=== PATIENT | male | born 1965 | race Caucasian/White ===

== ENCOUNTER 2020-10-06 18:21 | Inpatient (IN) | payer BC ==
[~2020-10-06] VITALS: Ht 182.9 cm; Wt 67.1 kg
[~2020-10-06 18:21] MED LIST: ASPI-611 PO; CARB200T2 PO; CARB200T68 PO; DIVA500T9 PO; GABA-338 PO; LISI20TA28 PO; PHEN100C4 PO; etomidate 2mg/ml inj. ONE; rocuronium 10mg/ml inj IV ONE
[2020-10-06] MEDS ORDERED: LORazepam 2 mg/ml vial IV ONE ×3 (18:30→21:50)
[2020-10-06] MEDS ORDERED: normal saline 1000ML IV soln IVB ONE (18:30)
[2020-10-06] MEDS ORDERED: levetiracetam inj 500 MG in normal saline 100ml IV soln 95 ML IV ONE (18:45)
--- NOTE | 2020-10-06 18:57 | NUR ---
ATTEMPT EKG, UNABLE AT THIS TIME, PATIENT TO CT.
[2020-10-06 19:03] LABS: BASOPHILS % (AUTO) 0.3 % (0-1); EOSINOPHILS % (AUTO) 0.2 % (0-6); HEMATOCRIT 46.9 % (42.0-52.0); HEMOGLOBIN 14.8 g/dl (14.0-17.9); LYMPHOCYTES % (AUTO) 18.7 % (21-51); MEAN CORPUSCULAR HEMOGLOBIN 33.3 PG (27.0-31.0); MEAN CORPUSCULAR HGB CONC 31.5 g/dL (33.0-36.5); MEAN CORPUSCULAR VOLUME 105.6 FL (78-98); MONOCYTES # (AUTO) 0.4 X10'3 (0-0.9); MONOCYTES % (AUTO) 3.4 % (2-12); NEUTROPHILS # (AUTO) 8.3 X10'3 (1.8-7.7); NEUTROPHILS % (AUTO) 77.4 % (42-75); PLATELET COUNT 185 X10'3 (140-440); RED BLOOD COUNT 4.44 X10'6 (4.70-6.10); RED CELL DISTRIBUTION WIDTH 13.1 % (11.5-14.5); WHITE BLOOD COUNT 10.7 X10'3 (4.5-11.0)
[2020-10-06] MEDS ORDERED: MIDAZolam 5mg/ml 2ml vial IV ONE (19:05)
[2020-10-06 19:32] LABS: ALANINE AMINOTRANSFERASE 32 U/L (12-78); ALBUMIN 4.1 G/DL (3.4-5.0); ALKALINE PHOSPHATASE 195 IU/L (46-116); ANION GAP 30 (8-16); ASPARTATE AMINO TRANSFERASE 32 U/L (10-37); BILIRUBIN,TOTAL 0.3 MG/DL (0.1-1.0); BLOOD UREA NITROGEN 9 MG/DL (7-18); BUN/CREATININE RATIO 6.9 (5.4-32.0); CALCIUM 8.8 MG/DL (8.5-10.1); CHLORIDE 102 MMOL/L (99-107); CREATININE 1.31 MG/DL (0.60-1.10); ETHANOL < 0.010 GM/DL (0.0-0.010); GLUCOSE 235 MG/DL (70-104); POTASSIUM 3.7 MMOL/L (3.5-5.1); SODIUM 141 MMOL/L (135-145); TOTAL PROTEIN 8.1 G/DL (6.4-8.2); VALPROATE < 3.0 UG/ML (50-100); eGFR 57 ML/MIN
[2020-10-06 19:33] LABS: CARBAMAZEPINE (TEGRETOL) < 0.5 UG/ML (4.0-12.0)
[2020-10-06 19:37] LABS: TOTAL CARBON DIOXIDE 9.3 MMOL/L (24-32)
[2020-10-06 19:38] LABS: TROPONIN I 1.69 NG/ML (0.0-0.05)
[2020-10-06] MEDS ORDERED: enoxaparin 100mg/ml syringe SUBCUT ONE (19:45)
[2020-10-06] MEDS: propofol 1000mg/100ml bottle 100 ML IV PRN (19:46)
[2020-10-06 19:49] LABS: ABG BASE EXCESS -11.1 mmol/L (-2.0-2.0); ABG HCO3 14.9 mmol/L (22.0-26.0); ABG OXYGEN SATURATION 98.9 % (94-97); ABG PCO2 (T) 33.3 mmHg (35.0-48.0); ABG PO2 (T) 161.5 mmHg (75.0-100.0); ALLEN'S TEST POSITIVE; FCOHb 0.3 % (0.0-3.9); FMetHb 0.4 % (0.0-1.5); FO2Hb 98.2 % (94-97); PATIENT TEMPERATURE 36.4; PEEP 5 cm H2O; RESPIRATORY RATE 16 b/min; TIDAL VOLUME 450 mL; TOTAL HEMOGLOBIN 14.9 G/dl (14.0-18.0)
[2020-10-06] MEDS ORDERED: enoxaparin 80mg/0.8ml syringe SUBCUT ONE (19:50)
--- NOTE | 2020-10-06 19:55 | NUR ---
@1930 20mg etomadate 80mg rocuronium 22cm to teeth
--- NOTE | 2020-10-06 19:56 | NUR ---
Suzie quesada in EDM - 10/06/20 at 2000 by SANDHYA prior to CT patient was extremely agitated with alternating sonorous behavior. Patient required 2 doses of ativan 2mg and 5 mg tony penaloza's presention and [facility], DR. Marin, decided to itaronbate, At `1930 patient intubated.
--- NOTE | 2020-10-06 20:00 | NUR ---
prior to CT patient was extremely agitated with alternating sonorous behavior. Patient required 2 doses of ativan 2mg and 5 mg versed. Due to patient's presention and PMH, DR. Marin, decided to intubate, At 1930 patient intubated.
[2020-10-06 20:36] LABS: CLARITY,URINE CLEAR (Clear); COLOR,URINE STRAW (Yellow); GLUCOSE, URINE 100 mg/dl (Neg); KETONES,URINE NEGATIVE (Neg); LEUKOCYTE ESTERASE ,URINE NEGATIVE (Neg); NITRITES, URINE NEGATIVE (Neg); OCCULT BLOOD,URINE MODERATE (Neg); PH,URINE 5.5 (4.8-8.0); PROTEIN,URINE TRACE mg/dl (Neg); UROBILINOGEN,URINE 0.2 E.U/dL (0.2-1.0)
[2020-10-06 20:40] LABS: UA COLLECTION TYPE CLN CATCH MIDSTREAM
[2020-10-06 20:41] LABS: BACTERIA,URINE NONE SEEN /HPF (Neg); RBC,URINE 0-2 /HPF (0-2); SQUAMOUS EPITHELIAL CELL,UR FEW /LPF (FEW); WBC,URINE NONE SEEN /HPF (0-4)
[2020-10-06 20:58] LABS: URINE AMPHETAMINE SCREEN NEGATIVE (Neg); URINE BARBITUATE SCREEN NEGATIVE (Neg); URINE BENZODIAZEPINES SCREEN POSITIVE (Neg); URINE CANNABINOID SCREEN POSITIVE (Neg); URINE COCAINE SCREEN NEGATIVE (Neg); URINE METHADONE SCREEN NEGATIVE (Neg); URINE OPIATE SCREEN NEGATIVE (Neg); URINE PHENCYCLIDINE SCREEN NEGATIVE (Neg)
[2020-10-06] MEDS ORDERED: acetaminophen 325mg tablet PO PRN ×2 (21:20)
[2020-10-06] MEDS ORDERED: ipratropium/albuterol 3ml nebule NEB PRN (21:20)
[2020-10-06] MEDS ORDERED: magnesium hydroxide 30ml (MOM) UD suspension PO PRN (21:20)
[2020-10-06] MEDS ORDERED: morphine 2 MG/ML inj. syringe IV PRN (21:20)
[2020-10-06] MEDS ORDERED: morphine 4 MG/ML inj SYRINge IV PRN (21:20)
[2020-10-06] MEDS: K, MAG and/or Phos replacement - Verify level? MC SCH (22:00)
[2020-10-06] MEDS ORDERED: FOSphenytoin 500mg inj. 1,000 MG in normal saline 100ml IV soln 80 ML IV ONE (22:40)
[2020-10-06 23:00] VITALS: BP 131/87
--- NOTE | 2020-10-06 23:00 | NUR ---
Pt transferred to CICU via gurney. PT placed on the ventilator. Patient having short jerkin seizure like twitches decerebrate in nature. Diprivan bolus given until seizures abated. pt heat rate decrease from 130 to 106.
[2020-10-06] MEDS ORDERED: FENTANYL-0.9 % NACL/PF 100 ML IV PRN (23:10)
[2020-10-07] VITALS (24 sets, daily range): BP systolic 97–128; BP diastolic 63–88
[2020-10-07 00:16] LABS: ABG BASE EXCESS -5.3 mmol/L (-2.0-2.0); ABG HCO3 18.1 mmol/L (22.0-26.0); ABG OXYGEN SATURATION 98.7 % (94-97); ABG PCO2 (T) 29.5 mmHg (35.0-48.0); ALLEN'S TEST POSITIVE; FCOHb 0.3 % (0.0-3.9); FMetHb 0.4 % (0.0-1.5); PEEP 5 cm H2O; RESPIRATORY RATE 14 b/min; TIDAL VOLUME 550 mL; TOTAL HEMOGLOBIN 13.9 G/dl (14.0-18.0)
[2020-10-07] MEDS: normal saline 1000ml 1,000 ML IV SCH ×4 (00:49→20:31)
[2020-10-07] MEDS: heparin, porcine 5000 units/ml vial SQ SCH ×4 (00:51→23:31)
[2020-10-07] MEDS ORDERED: acetaminophen 325mg/10.15ml oral unit dose solution OGT PRN ×2 (01:10→01:11)
[2020-10-07] MEDS ORDERED: magnesium hydroxide 30ml (MOM) UD suspension OGT PRN (01:11)
[2020-10-07 04:49] LABS: ABG HCO3 18.3 mmol/L (22.0-26.0); ABG OXYGEN SATURATION 98.4 % (94-97); ABG PCO2 (T) 26.7 mmHg (35.0-48.0); ABG PO2 (T) 121.6 mmHg (75.0-100.0); ALLEN'S TEST POSITIVE; FCOHb 0.2 % (0.0-3.9); FMetHb 0.3 % (0.0-1.5); FO2Hb 97.9 % (94-97); PATIENT TEMPERATURE 37.2; PEEP 5 cm H2O; RESPIRATORY RATE 14 b/min; TIDAL VOLUME 550 mL; TOTAL HEMOGLOBIN 13.4 G/dl (14.0-18.0)
[2020-10-07] MEDS: propofol 1000mg/100ml bottle 100 ML IV PRN ×5 (05:18→22:33)
[2020-10-07 06:16] LABS: BASOPHILS % (AUTO) 0.3 % (0-1); EOSINOPHILS % (AUTO) 0.2 % (0-6); HEMATOCRIT 41.3 % (42.0-52.0); HEMOGLOBIN 13.7 g/dl (14.0-17.9); MEAN CORPUSCULAR HGB CONC 33.3 g/dL (33.0-36.5); MEAN CORPUSCULAR VOLUME 99.1 FL (78-98); MEAN PLATELET VOLUME 10.5 FL (7.4-10.4); MONOCYTES # (AUTO) 1.4 X10'3 (0-0.9); MONOCYTES % (AUTO) 12.9 % (2-12); NEUTROPHILS # (AUTO) 7.5 X10'3 (1.8-7.7); NEUTROPHILS % (AUTO) 68.6 % (42-75); PLATELET COUNT 135 X10'3 (140-440); RED BLOOD COUNT 4.17 X10'6 (4.70-6.10); RED CELL DISTRIBUTION WIDTH 12.6 % (11.5-14.5); WHITE BLOOD COUNT 10.9 X10'3 (4.5-11.0)
--- NOTE | 2020-10-07 06:30 | NUR ---
Patient in room CICU 2010. I have received report from Jose SHARP and had the opportunity to ask questions and assume patient care.
[2020-10-07 06:31] LABS: ALBUMIN 3.4 G/DL (3.4-5.0); ANION GAP 13 (8-16); BLOOD UREA NITROGEN 5 MG/DL (7-18); BUN/CREATININE RATIO 5.7 (5.4-32.0); CALCIUM 8.5 MG/DL (8.5-10.1); CHLORIDE 111 MMOL/L (99-107); CREATININE 0.87 MG/DL (0.60-1.10); GLUCOSE 104 MG/DL (70-104); POTASSIUM 3.5 MMOL/L (3.5-5.1); SODIUM 145 MMOL/L (135-145); TOTAL CARBON DIOXIDE 20.8 MMOL/L (24-32); TRIGLYCERIDES 101 MG/DL (20-135); eGFR > 90 ML/MIN
[2020-10-07 07:38] LABS: TROPONIN I 2.77 NG/ML (0.0-0.05)
[2020-10-07 07:59] LABS: LARGE PLATELETS FEW; PLATELET ESTIMATE DECREASED
[2020-10-07] MEDS: K, MAG and/or Phos replacement - Verify level? MC SCH (08:00)
[2020-10-07] MEDS ORDERED: dextrose 50%-water 50ml dispensing syringe IV ONE (08:09)
[2020-10-07] MEDS ORDERED: insulin Lispro (HumaLOG) vial - multi-dose SQ SCH (08:15)
[2020-10-07] MEDS ORDERED: MESSAGE TO PHARMACY PO ONE (08:15)
[2020-10-07] MEDS ORDERED: dextrose 50%-water 50ml dispensing syringe IV PRN ×2 (08:15)
[2020-10-07] MEDS ORDERED: glucagon, human recombinant 1mg kit SUBCUT PRN (08:15)
[2020-10-07] MEDS ORDERED: dextrose ORAL solution 15 GM/59 ML bottle PO PRN ×2 (08:15)
[2020-10-07] MEDS: pantoprazole 40 MG vial IV SCH (08:23)
[2020-10-07] MEDS: aspirin 81mg tab.chew OGT SCH (08:23)
[2020-10-07 09:35] LABS: HEMOGLOBIN A1C 5.1 % (4.5-6.2)
--- NOTE | 2020-10-07 09:39 | NUR ---
Dr. Chacon by to round on patient, informed him of rising trop. level fo 2.77 from 1.33, stated that cardiology needs to be consulted and that patient needs an echo.
--- NOTE | 2020-10-07 10:15 | NUR ---
Benigno Consult: Pt intubated admit DX status epilepticus hx seizures possible non-compliant w/ meds per EMR. Benigno 11 w/ skin intact per EMR. Current TF diet active "per dietitian" by night MD; per data review specialist note this AM pt to remain NPO at this time in case able to extubate. RN cancelling current TF diet. GLU 151 up from 64 s/p dextrose this AM. TF recs below in case prolonged intubation. Will continue to monitor. Rec: 1. IF TF; vital High Protein at 75ml/hr goal 2. IF TF; additional water flush 200ml Q4 3. IF TF; PALB Q /; daily wts 4. routine bowel care 5. upon extubation; advance diet as medically indicated to regular Addendum: 10/07/20 at [address] Amended: Links added.
[2020-10-07] MEDS ORDERED: levetiracetam-NS 1000mg/100ml 100 ML IV ONE ×3 (10:45→20:30)
[2020-10-07] MEDS ORDERED: UNABLE TO OBTAIN (11:56)
[2020-10-07 14:04] LABS: PHENYTOIN (DILANTIN) 14.6 UG/ML (10.0-20.0)
[2020-10-07 14:05] LABS: TROPONIN I 2.44 NG/ML (0.0-0.05)
[2020-10-07] MEDS: Dextrose 10%-water IV solution 1,000 ML IV SCH ×2 (14:36→22:34)
[2020-10-07] MEDS ORDERED: levetiracetam inj 2,000 MG in normal saline 100ml IV soln 80 ML IV ONE (20:00)
[2020-10-07] MEDS ORDERED: insulin glargine (Lantus) pen - multi-dose SQ SCH (21:00)
[2020-10-07] MEDS ORDERED: FOSphenytoin 100mg/2ml inj IV SCH (21:00)
[2020-10-08] VITALS (15 sets, daily range): BP systolic 117–153; BP diastolic 76–98
[2020-10-08 03:54] LABS: ABG HCO3 18.4 mmol/L (22.0-26.0); ABG OXYGEN SATURATION 96.7 % (94-97); ABG PCO2 (T) 32.8 mmHg (35.0-48.0); ABG PO2 (T) 89.2 mmHg (75.0-100.0); ALLEN'S TEST POSITIVE; FCOHb 0.3 % (0.0-3.9); FMetHb 0.3 % (0.0-1.5); FO2Hb 96.1 % (94-97); PEEP 5 cm H2O; RESPIRATORY RATE 14 b/min; TIDAL VOLUME 500 mL; TOTAL HEMOGLOBIN 12.7 G/dl (14.0-18.0)
[2020-10-08] MEDS: normal saline 1000ml 1,000 ML IV SCH (04:20)
[2020-10-08] MEDS: propofol 1000mg/100ml bottle 100 ML IV PRN ×3 (04:20→13:11)
[2020-10-08] MEDS ORDERED: LORazepam 2 mg/ml vial IV PRN (05:25)
[2020-10-08 06:10] LABS: ALBUMIN 1.9 G/DL (3.4-5.0); ANION GAP 11 (8-16); BLOOD UREA NITROGEN 4 MG/DL (7-18); BUN/CREATININE RATIO 4.9 (5.4-32.0); CALCIUM 7.6 MG/DL (8.5-10.1); CHLORIDE 112 MMOL/L (99-107); CREATININE 0.81 MG/DL (0.60-1.10); GLUCOSE 109 MG/DL (70-104); MAGNESIUM 2.1 MG/DL (1.5-2.4); POTASSIUM 3.7 MMOL/L (3.5-5.1); SODIUM 139 MMOL/L (135-145); TOTAL CARBON DIOXIDE 16.2 MMOL/L (24-32); eGFR > 90 ML/MIN
--- NOTE | 2020-10-08 06:50 | NUR ---
Patient in room CICU 2010. I have received report from Dl SHARP and had the opportunity to ask questions and assume patient care.
[2020-10-08] MEDS ORDERED: CARBAMAZEPINE 200 MG/10 ML OGT SCH ×3 (07:30→21:00)
[2020-10-08] MEDS: pantoprazole 40 MG vial IV SCH (07:50)
[2020-10-08] MEDS: aspirin 81mg tab.chew OGT SCH (07:50)
[2020-10-08] MEDS ORDERED: levetiracetam-NS 1000mg/100ml 100 ML IV SCH (08:00)
[2020-10-08] MEDS: K, MAG and/or Phos replacement - Verify level? MC SCH (08:00)
[2020-10-08] MEDS ORDERED: CefTRIAXone/D5W-Rocephin 1gm 50 ML IV SCH (08:00)
--- NOTE | 2020-10-08 09:16 | NUR ---
5F TRIPLE LUMEN PICC LINE PLACED TO RIGHT BASILIC VEIN REF: [id number] LOT: [id number] EXP: 09/12/2021
[2020-10-08 09:20] LABS: BASOPHILS % (AUTO) 0.6 % (0-1); EOSINOPHILS % (AUTO) 0.2 % (0-6); HEMATOCRIT 36.7 % (42.0-52.0); HEMOGLOBIN 12.2 g/dl (14.0-17.9); LYMPHOCYTES # (AUTO) 1.4 X10'3 (1.1-4.8); LYMPHOCYTES % (AUTO) 16.4 % (21-51); MEAN CORPUSCULAR HEMOGLOBIN 32.8 PG (27.0-31.0); MEAN CORPUSCULAR HGB CONC 33.2 g/dL (33.0-36.5); MEAN CORPUSCULAR VOLUME 98.7 FL (78-98); MEAN PLATELET VOLUME 9.7 FL (7.4-10.4); MONOCYTES # (AUTO) 0.9 X10'3 (0-0.9); MONOCYTES % (AUTO) 10.4 % (2-12); NEUTROPHILS % (AUTO) 72.4 % (42-75); PLATELET COUNT 133 X10'3 (140-440); RED BLOOD COUNT 3.72 X10'6 (4.70-6.10); RED CELL DISTRIBUTION WIDTH 13.1 % (11.5-14.5); WHITE BLOOD COUNT 8.3 X10'3 (4.5-11.0)
[2020-10-08 09:25] LABS: ANISOCYTOSIS 3+; ELLIPTOCYTES 1+; LARGE PLATELETS FEW; PLATELET ESTIMATE DECREASED; SCHISTOCYTES FEW; TOTAL CELLS COUNTED 100
[2020-10-08 09:26] LABS: BURR CELLS 1+
[2020-10-08] MEDS: Dextrose 10%-water IV solution 1,000 ML IV SCH (09:49)
--- NOTE | 2020-10-08 10:40 | NUR ---
Rounds note: review of systems, labs and mediations. Dr. Chacon would like to have the patient transferred to a higher level of care that has an inpatient Neurologist. New orders, D/C heparin tube feed consult
--- NOTE | 2020-10-08 11:37 | NUR ---
Patients mother Laureen Mercado called, updated her on hers sons current status and the plan of care and his impending transfer to a higher level of care with a neurologist Addendum: 10/08/20 at 1143 by Carin Padilla RN Per patients mother, when he was last on [facility] he became very confrontational and aggressive. She felt that it was important for us to know this as he was taken off of it when he was under the care of Dr. Braxton
--- NOTE | 2020-10-08 12:08 | NUR ---
TF Consult: Pt to start TF today per well point pumping supervisor; recs below using first scaled wt this AM 67.1kg per RN today. Pt currently receiving D5 at 100ml/hr for prior low GLU. Will monitor for TF tolerance. Rec: 1. Continuous TF per MD using Vital AF at 70ml/hr goal; to provide 1680ml volume, 2016 kcals, 1361ml free water, and 126g protein. 2. additional water flush 100ml Q4 3. PALB Q /; daily wts 4. routine bowel care 5. monitor for TF tolerance Addendum: 10/08/20 at [address] Amended: Links added.
--- NOTE | 2020-10-08 14:57 | NUR ---
Cassidy her to transport patient to [facility] neuro icu, called report to steven at [phone], full review of systems and events given questions answered. I Carin Heller Rn will accompany [facility] per CASSIDY mendozacokari. bag of belongings sent with patient. Patient transported on propofol, fentanyl and D10
[2020-10-09] MEDS ORDERED: lansoprazole 15mg solutab OGT SCH (08:00)
== END 2020-10-08 16:00 | disposition short-term general hospital (02) | DRG 208 ==
LOC: ER 18:22 → ED HOLD 21:20 → CICU 2S 22:17
PROVIDERS: ADMIT Internal Medicine Critical Care Medicine; ATTEND Internal Medicine Critical Care Medicine
PROC: 0BH17EZ Insertion of Endotracheal Airway into Trachea, Via Natural or Artificial Opening (ICD-10-PCS; 2020-10-06)
PROC: 5A1945Z Respiratory Ventilation, 24-96 Consecutive Hours (ICD-10-PCS; 2020-10-06)
PROC: 4A00X4Z Measurement of Central Nervous Electrical Activity, External Approach (ICD-10-PCS; principal; 2020-10-08)
DX: J96.01 Acute respiratory failure with hypoxia (principal); I21.4 Non-ST elevation (NSTEMI) myocardial infarction; J18.9 Pneumonia, unspecified organism; E87.2 Acidosis; G40.901 Epilepsy, unspecified, not intractable, with status epilepticus; E86.0 Dehydration; I10 Essential (primary) hypertension; I25.10 Atherosclerotic heart disease of native coronary artery without angina pectoris; Z20.822 Contact with and (suspected) exposure to COVID-19; Z82.49 Family history of ischemic heart disease and other diseases of the circulatory system; Z86.73 Personal history of transient ischemic attack (TIA), and cerebral infarction without residual deficits; Z79.899 Other long term (current) drug therapy; Z79.82 Long term (current) use of aspirin
CPT/HCPCS: 36415; 36573; 36600; 70450; 71045; 80048; 80053; 80156; 80164; 80185; 80305; 80320; 81001; 82803; 82948; 83036; 83605; 83735; 84134; 84478; 84484; 85007; 85008; 85018; 85025; 87070; 87081; 87635; 93005; 93306; 94002; 94003; 94760; 95816; 96365; 96375; 99291; C9113; C9803; G0378; J0696; J1644; J1650; J1815; J1953; J2060; J2250; J2704; J3010; J7030

== ENCOUNTER 2021-05-11 21:48 | Emergency (ER) | payer BC, OTHER ==
[~2021-05-11] VITALS: Ht 162.6 cm; Wt 65.9 kg
[~2021-05-11 21:48] MED LIST changes: +UNABLE TO OBTAIN; -etomidate 2mg/ml inj. ONE; -rocuronium 10mg/ml inj IV ONE
[2021-05-11] MEDS ORDERED: ondansetron/PF 4mg/2ml inj IV ONE (21:55)
[2021-05-11 22:26] LABS: BASOPHILS % (AUTO) 0.2 % (0-1); EOSINOPHILS % (AUTO) 0.1 % (0-6); HEMATOCRIT 38.5 % (42.0-52.0); HEMOGLOBIN 13.1 g/dl (14.0-17.9); LYMPHOCYTES # (AUTO) 1.4 X10'3 (1.1-4.8); LYMPHOCYTES % (AUTO) 11.8 % (21-51); MEAN CORPUSCULAR HEMOGLOBIN 33.3 PG (27.0-31.0); MEAN CORPUSCULAR VOLUME 97.8 FL (78-98); MONOCYTES # (AUTO) 1.1 X10'3 (0-0.9); MONOCYTES % (AUTO) 9.3 % (2-12); NEUTROPHILS # (AUTO) 9.2 X10'3 (1.8-7.7); NEUTROPHILS % (AUTO) 78.6 % (42-75); PLATELET COUNT 188 X10'3 (140-440); RED BLOOD COUNT 3.94 X10'6 (4.70-6.10); WHITE BLOOD COUNT 11.7 X10'3 (4.5-11.0)
[2021-05-11] MEDS ORDERED: phenytoin sod ER 100mg capsule PO ONE ×2 (22:40)
[2021-05-11] MEDS ORDERED: normal saline 1000ML IV soln IVB ONE ×2 (22:40→23:25)
[2021-05-11 22:43] LABS: ALANINE AMINOTRANSFERASE 28 U/L (12-78); ALBUMIN 3.9 G/DL (3.4-5.0); ALBUMIN/GLOBULIN RATIO 0.9 (1.1-1.5); ALKALINE PHOSPHATASE 133 IU/L (46-116); ANION GAP 19 (8-16); ASPARTATE AMINO TRANSFERASE 24 U/L (10-37); BILIRUBIN,TOTAL 0.2 MG/DL (0.1-1.0); BLOOD UREA NITROGEN 13 MG/DL (7-18); BUN/CREATININE RATIO 12.3 (5.4-32.0); CALCIUM 8.9 MG/DL (8.5-10.1); CHLORIDE 101 MMOL/L (99-107); CREATININE 1.06 MG/DL (0.60-1.10); GLUCOSE 134 MG/DL (70-104); MAGNESIUM 1.9 MG/DL (1.5-2.4); POTASSIUM 3.8 MMOL/L (3.5-5.1); SODIUM 142 MMOL/L (135-145); TOTAL CARBON DIOXIDE 21.8 MMOL/L (24-32); TOTAL PROTEIN 8.1 G/DL (6.4-8.2); eGFR 73 ML/MIN
[2021-05-11] MEDS ORDERED: normal saline 1000ml 1,000 ML IV ONE (23:35)
[2021-05-11 23:44] LABS: PHENYTOIN (DILANTIN) 1.9 UG/ML (10.0-20.0)
[2021-05-12 00:41] LABS: CLARITY,URINE CLEAR (Clear); COLOR,URINE YELLOW (Yellow); GLUCOSE, URINE NEGATIVE (Neg); KETONES,URINE 15 mg/dl (Neg); LEUKOCYTE ESTERASE ,URINE NEGATIVE (Neg); NITRITES, URINE NEGATIVE (Neg); OCCULT BLOOD,URINE SMALL (Neg); PROTEIN,URINE 30 mg/dl (Neg); UROBILINOGEN,URINE 0.2 E.U/dL (0.2-1.0)
[2021-05-12 00:49] LABS: UA COLLECTION TYPE URINAL
[2021-05-12 00:50] LABS: BACTERIA,URINE NONE SEEN /HPF (Neg); RBC,URINE 0-2 /HPF (0-2); SQUAMOUS EPITHELIAL CELL,UR FEW /LPF (FEW); WBC,URINE NONE SEEN /HPF (0-4)
[2021-05-12 00:51] LABS: URINE AMPHETAMINE SCREEN NEGATIVE (Neg); URINE BARBITUATE SCREEN NEGATIVE (Neg); URINE BENZODIAZEPINES SCREEN NEGATIVE (Neg); URINE CANNABINOID SCREEN POSITIVE (Neg); URINE COCAINE SCREEN POSITIVE (Neg); URINE METHADONE SCREEN NEGATIVE (Neg); URINE OPIATE SCREEN NEGATIVE (Neg); URINE PHENCYCLIDINE SCREEN NEGATIVE (Neg)
[2021-05-12] MEDS ORDERED: divalproex sodium 500mg tablet.DR PO ONE (01:40)
[2021-05-12 02:40] LABS: CARBAMAZEPINE (TEGRETOL) 5.5 UG/ML (4.0-12.0)
[2021-05-12 02:46] VITALS: BP 113/61
== END 2021-05-12 02:48 | disposition home or self-care (01) ==
LOC: ER 21:48
DX: F14.10 Cocaine abuse, uncomplicated (principal); G40.89 Other seizures; Z91.19 Patient's noncompliance with other medical treatment and regimen
CPT/HCPCS: 36415; 70450; 71045; 80053; 80156; 80185; 80305; 81001; 83605; 83735; 84145; 85025; 87040; 93005; 96361; 96374; 99285; J2405; J7030